=== PATIENT | female | born 1995 | race Caucasian/White ===

== ENCOUNTER 2017-01-04 21:49 | Emergency (ER) | payer OTHER ==
[~2017-01-04] VITALS: Ht 162.6 cm; Wt 73.6 kg
[2017-01-04 21:52] VITALS: BP 166/91; TEMP 98.4
[2017-01-04] MEDS ORDERED: BUSPAR5 MG PO (21:55)
[2017-01-04] MEDS ORDERED: ZOVIRAX400 MG PO (21:55)
[2017-01-04] MEDS ORDERED: CLEOCIN HCL300 MG PO (22:27)
[2017-01-04 22:44] VITALS: PULSE 67
== END 2017-01-04 22:44 | disposition home or self-care (01) ==
LOC: COL.ER 21:49
DX: J03.90 Acute tonsillitis, unspecified (principal); B27.90 Infectious mononucleosis, unspecified without complication
CPT/HCPCS: J1100